=== PATIENT | male | born 1970 | race American Indian/Alaskan Native ===

== ENCOUNTER 2025-07-05 09:24 | Emergency (ER) | payer BC ==
[~2025-07-05] VITALS: Ht 185.4 cm; Wt 92.7 kg
[2025-07-05 09:25] VITALS: BP 139/87; PULSE 87; RESP 16; O2SAT 99
--- NOTE | 2025-07-05 09:53 | RADIOLOGY REPORT ---
CLINICAL INDICATION: KNEE PAIN TECHNIQUE: 3-view right DI KNEE, COMP 4 VW MIN COMPARISON: None FINDINGS/IMPRESSION: : There is no evidence of acute fracture or dislocation. Soft tissues are unremarkable. Minimal joint effusion. Minimal degenerative changes of the patellofemoral compartment.
--- NOTE | 2025-07-05 10:12 | Physician Documentation ---
History of Present Illness ~ Chief Complaint: Knee Pain Stated Complaint: KNEE PAIN Time Seen by MD: 09:45 Primary Medical Doctor: Jac Source: patient Mode of Arrival: POV Exam Limitations: no limitations HPI 54-year-old male with complaints of right knee pain after playing basketball yesterday with his kids he stood and pivoted heard a pop. No previous knee injury or surgical history Tetanus witin 5 years: Yes Medication Reconciliation Allergies: Coded Allergies: No Known Allergies (Unverified , 07/05/25) Scheduled Ibuprofen (Ibu), 1 TAB PO Q8H Past Medical History Past Medical History: No Pertinent History Review of Systems All Other Systems at this time: Reviewed and Negative Musculoskeletal: Reports: see HPI Physical Exam Vital Signs: RN Vital Signs have been reviewed: Yes, Temperature: 98.0, Source: Temporal, Heart Rate: 87, Respiratory Rate: 16, BP: 139/87, Pulse Oximetry: 99, Weight: 92.730 Oxygen Flow Rate: 0 Physical Exam General: Alert, no apparent distress. HEENT: moist mucous membranes. Neck: Full range of motion. Respiratory: No respiratory distress speaking in full sentences Chest: No accessory muscle use. Cardiovascular: Appears well perfused Extremity: Dr. Trujillo orthopedic surgeon during examination Neurologic: Oriented x4. Psychiatric: Normal mood and affect. Skin: Normal color, warm and dry. No edema, no ecchymosis. Progress Results/Orders Results/Orders Vital Signs 07/05/25 07/05/25 09:25 10:24 Temp 98.0 98.0 Pulse 87 Resp 16 B/P (MAP) 139/87 Pulse Ox 99 O2 Flow Rate 0 EKG/XRAY/CT/US/VASC/MRI Bone/Soft Tissue X-Ray (Ext.) : Additional Comment CLINICAL INDICATION: KNEE PAIN TECHNIQUE: 3-view right DI KNEE, COMP 4 VW MIN COMPARISON: None FINDINGS/IMPRESSION: : There is no evidence of acute fracture or dislocation. Soft tissues are unremarkable. Minimal joint effusion. Minimal degenerative changes of the patellofemoral compartment. Medical Decision Making Additional information obtaine: N/A Findings X-ray was unremarkable for any fractures. In room with Dr. Trujillo orthopedic specialists. Recommending MRI ordered outpatient and ibuprofen as well as brace General Diff Dx:Considerations: Unlikely: Abrasion, Contusion, Fracture, Hematoma, Laceration, Malunion, Neurovascular injury, Open fracture, Sprain, Ulcer, Other Knee Diff Dx:Considerations: Include: Meniscus injury, Sprain, Sprain-MCL, Sprain-LCL, Sprain-ACL, Sprain-PCL Ankle Diff Dx:Considerations: Unlikely: Abrasion, Arthritis, Contusion, DJD, Fracture-metatarsal, Fracture-fibula, Fracture-tarsal, Fracture-tibia, Gout, Hematoma, Laceration, Malunion, Neurovascular injury, Nonunion, Open fracture, Osteomyelitis, Rheumatoid arthritis, Sprain, Septic, Ulcer, Other Foot Diff Dx:Considerations: Unlikely: Abrasion, Arthritis, Cellulitis, C ontusion, Dislocation, DJD, Fracture-metatarsal, Fracture-phalynx, Fracture- tarsal, Gout, Hematoma, Ingrown toenail, Laceration, Malunion, Neurovascular injury, Open fracture, Paronychia, Puncture, Rheumatoid, Sprain, Septic, Subungual hematoma, Ulcer, Other Toe Diff Dx:Considerations: Unlikely: Abrasion, Cellulitis, Contusion, Dislocation, Felon, Fracture, Hematoma, Laceration, Neurovascular injury, Open fracture, Paronychia, Subungual hematoma, Other Departure Time of Disposition: 10:18 Disposition: 01 HOME / SELF CARE / HOMELESS Impression: Primary Impression: Knee pain Additional Impression: Effusion of knee Condition: Stable Discharge Instructions: Acute Knee Pain, Adult Additional Instructions: Continue to follow Dr. Colin recommendations with knee brace outpatient MRI ordered take ibuprofen as prescribed Referrals: NO PRIMARY CARE PROVIDER (PCP) Prescriptions Ibuprofen (Ibu) 800 Mg Tablet 1 TAB PO Q8H for 30 Days, #90 TAB 0 Refills Prov: RUBY DE LEON NP 07/05/25 Education Educated: Patient Educated regarding: diagnosis, treatment, need for follow up Signature Scribe Signature: No scribe Attestation: The note accurately reflects work and decisions made by me.Ruby FITZPATRICK 07/05/25 10:20 RUBY DE LEON NP Jul 05, 2025 10:12
[2025-07-05] MEDS ORDERED: IBUP-864 PO (10:19)
[2025-07-05 10:24] VITALS: TEMP 98
== END 2025-07-05 10:25 | disposition home or self-care (01) ==
LOC: ER 09:25
DX: M25.461 Effusion, right knee (principal); M25.561 Pain in right knee; Z79.899 Other long term (current) drug therapy
CPT/HCPCS: 73564; 99283